=== PATIENT | female | born 1955 | race African-American/Black ===

== ENCOUNTER 2017-02-27 11:44 | Emergency (ER) | payer MEDICAID ==
[~2017-02-27] VITALS: Ht 167.6 cm; Wt 100.0 kg
[~2017-02-27 11:44] MED LIST: ACET-66 PO; AGGR20025 PO; BUDE10.2 IH; CARV6 PO; ESOM20CA31 PO; FURO40TA5 PO; GLYB5TAB8 PO; INSLAN SQ; LEVAHFA IH; LISI5TAB PO; MELO-273 PO; METF500T4 PO; MONT10TA21 PO; NABU750 PO; NIFE60TA85 PO; QUET200T PO; RISP2TAB22 PO; VICOT PO
[2017-02-27 11:59] LABS: BASOPHILS # (AUTO) 0.02 K/uL (0.00-0.20); BASOPHILS % (AUTO) 0.4 % (0.0-2.0); EOSINOPHILS # (AUTO) 0.03 K/uL (0.00-0.70); EOSINOPHILS % (AUTO) 0.57 % (1.0-6.0); HEMATOCRIT 36.9 % (36-46); HEMOGLOBIN 11.9 g/dL (12.0-16.0); LYMPHOCYTES # (AUTO) 2.4 K/uL (1.0-4.8); LYMPHOCYTES % (AUTO) 44.8 % (22.0-44.0); MEAN CORPUSCULAR HEMOGLOBIN 31.1 pg (26.0-34.0); MEAN CORPUSCULAR HGB CONC 32.2 G/dL (31.0-37.0); MEAN CORPUSCULAR VOLUME 96 fL (80-100); MONOCYTES # (AUTO) 0.5 K/uL (0.1-1.0); MONOCYTES % (AUTO) 8.6 % (2.0-9.0); NEUTROPHILS # (AUTO) 2.4 K/uL (1.8-7.7); NEUTROPHILS % (AUTO) 45.7 % (40.0-70.0); PLATELET COUNT (AUTO) 107 K/uL (150-450); RED BLOOD CELL COUNT(AUTO) 3.83 MIL/uL (4.00-5.20); RED CELL DISTRIBUTION WIDTH 15.1 % (11.5-14.5); WHITE BLOOD COUNT (AUTO) 5.3 K/uL (4.5-11.0)
[2017-02-27] MEDS ORDERED: HydrALAZINE HCL 20 MG/ML VIAL IVP ONE (12:00)
[2017-02-27 12:09] LABS: ANION GAP 14 mmol/L (8-16); CALCIUM, TOTAL 8.2 mg/dL (8.8-10.5); CARBON DIOXIDE 22 mmol/L (22-29); CHLORIDE 104 mmol/L (98-107); GLOMERULAR FILTR. RATE CALC 50 mL/min (>60); POTASSIUM 3.3 mmol/L (3.5-5.1); SODIUM SERUM 140 mmol/L (136-145); UREA NITROGEN, BLOOD 15 mg/dL (7-18)
[2017-02-27 12:11] LABS: INR 1.2 (0.9-1.1); PROTHROMBIN TIME 12.6 SEC (9.4-11.6)
[2017-02-27] MEDS ORDERED: ASPIRIN 81 MG CHEWABLE TABLET PO ONE (12:15)
[2017-02-27 12:34] LABS: ALANINE AMINOTRANSFERASE 129 U/L (12-78); ALBUMIN 2.5 g/dL (3.4-5.0); ASPARTATE AMINOTRANSFERASE 156 U/L (15-37); BILIRUBIN,TOTAL 0.3 mg/dL (0.1-1.0); CREATINE KINASE MB 0.8 ng/mL (0-5); CREATINE KINASE, TOTAL 142 U/L (26-192); TOTAL PROTEIN, SERUM 8.2 g/dL (6.4-8.2)
[2017-02-27 13:09] LABS: APPEARANCE,URINE CLEAR (CLEAR); GLUCOSE, URINE (UA) 500 mg/dL (NEGATIVE); KETONES,URINE NEGATIVE (NEGATIVE); LEUKOCYTE ESTERASE ,URINE NEGATIVE (NEGATIVE); OCCULT BLOOD,URINE TRACE (NEGATIVE); PH,URINE 6.5 (5.0-8.0); PROTEIN,URINE SEE CONFIRM (NEGATIVE)
[2017-02-27 13:12] LABS: ADD UA MICROSCOPIC YES
[2017-02-27 13:17] LABS: SULFOSALICYLIC ACID,URINE 1+ (Negative)
[2017-02-27 13:18] LABS: RBC,URINE 0-2 /HPF (0-2); SQUAMOUS EPITHELIAL CELL,UR Moderate /LPF (None Seen); WBC,URINE None Seen /HPF (0-5)
[2017-02-27] MEDS ORDERED: MetFORMIN HCL 500 MG TABLET PO ONE (13:45)
[2017-02-27] MEDS ORDERED: LISINOPRIL 10 MG TABLET PO ONE (13:45)
[2017-02-27] MEDS ORDERED: NIFEdipine 60 MG ER TABLET PO ONE (13:45)
[2017-02-27] MEDS ORDERED: HydrALAZINE HCL 10 MG TABLET PO ONE (15:45)
[2017-02-27] MEDS ORDERED: HydrALAZINE HCL 25 MG TABLET PO ONE (15:45)
[2017-02-27 16:05] VITALS: BP 186/81
== END 2017-02-27 16:39 | disposition home or self-care (01) ==
LOC: EMS 11:52
DX: G45.9 Transient cerebral ischemic attack, unspecified (principal); I10 Essential (primary) hypertension; E87.6 Hypokalemia; D64.9 Anemia, unspecified; I45.10 Unspecified right bundle-branch block; I11.0 Hypertensive heart disease with heart failure; I50.9 Heart failure, unspecified; E78.00 Pure hypercholesterolemia, unspecified; J44.9 Chronic obstructive pulmonary disease, unspecified; J45.909 Unspecified asthma, uncomplicated; F17.210 Nicotine dependence, cigarettes, uncomplicated; Z88.5 Allergy status to narcotic agent; Z71.6 Tobacco abuse counseling
CPT/HCPCS: 36415; 70450; 71010; 80053; 81001; 81002; 82550; 82553; 84484; 85025; 85610; 85730; 93005; 96365; 99285; 99406; J0360

== ENCOUNTER 2018-06-16 09:50 | Inpatient (IN) | payer MEDICAID ==
[~2018-06-16] VITALS: Ht 154.9 cm; Wt 63.4 kg
[~2018-06-16 09:50] MED LIST changes: +MELO-107 PO; -MELO-273 PO; +METF-444 PO; -METF500T4 PO
[2018-06-16 10:03] LABS: GLUCOSE,POINT OF CARE 96 MG/DL (70-110)
[2018-06-16] MEDS ORDERED: HydrALAZINE HCL 20 MG/ML VIAL IVP ONE ×2 (10:45→11:00)
[2018-06-16] MEDS ORDERED: CARVEDILOL 3.125 MG TABLET PO ONE (10:45)
[2018-06-16] MEDS ORDERED: LISINOPRIL 10 MG TABLET PO ONE (10:45)
[2018-06-16 12:30] LABS: BASOPHILS % (AUTO) 0.8 % (0.0-2.0); EOSINOPHILS % (AUTO) 0.6 % (1.0-6.0); HEMATOCRIT 37.8 % (36-46); HEMOGLOBIN 12.8 g/dL (12.0-16.0); LYMPHOCYTES # (AUTO) 1.5 K/uL (1.0-4.8); LYMPHOCYTES % (AUTO) 52.6 % (22.0-44.0); MEAN CORPUSCULAR HEMOGLOBIN 33.9 pg (26.0-34.0); MEAN CORPUSCULAR HGB CONC 33.8 G/dL (31.0-37.0); MEAN CORPUSCULAR VOLUME 100 fL (80-100); MONOCYTES # (AUTO) 0.3 K/uL (0.1-1.0); MONOCYTES % (AUTO) 12.1 % (2.0-9.0); NEUTROPHILS % (AUTO) 33.9 % (40.0-70.0); RED BLOOD CELL COUNT(AUTO) 3.78 MIL/uL (4.00-5.20); RED CELL DISTRIBUTION WIDTH 13.4 % (11.5-14.5)
[2018-06-16 12:42] LABS: ANION GAP 13 mmol/L (8-16); CALCIUM, TOTAL 9.1 mg/dL (8.8-10.5); CARBON DIOXIDE 28 mmol/L (22-29); CHLORIDE 100 mmol/L (98-107); CREATININE 1.11 mg/dL (0.60-1.30); GLOMERULAR FILTR. RATE CALC 60 mL/min (>60); GLUCOSE,RANDOM 94 mg/dL (70-110); POTASSIUM 3.2 mmol/L (3.5-5.1); SODIUM SERUM 141 mmol/L (136-145); UREA NITROGEN, BLOOD 27 mg/dL (7-18)
[2018-06-16 13:09] LABS: ALANINE AMINOTRANSFERASE 143 U/L (12-78); ALBUMIN 3.3 g/dL (3.4-5.0); ALKALINE PHOSPHATASE 77 U/L (46-116); ASPARTATE AMINOTRANSFERASE 237 U/L (15-37); BILIRUBIN,TOTAL 0.8 mg/dL (0.1-1.0); CREATINE KINASE MB 2.5 ng/mL (0-5); CREATINE KINASE, TOTAL 140 U/L (26-192)
[2018-06-16] MEDS ORDERED: AMLO-512 PO (13:11)
[2018-06-16] MEDS ORDERED: PROM6.2522 PO (13:11)
[2018-06-16] MEDS ORDERED: RISP2 PO (13:11)
[2018-06-16] MEDS ORDERED: OXCA300T PO (13:11)
[2018-06-16] MEDS ORDERED: QUET200T PO (13:11)
[2018-06-16] MEDS ORDERED: ALBU8.5H8 IH (13:11)
[2018-06-16] MEDS ORDERED: CLON.2 PO (13:11)
[2018-06-16] MEDS ORDERED: FAMO20 PO (13:11)
[2018-06-16] MEDS ORDERED: RIVA20TA PO (13:11)
[2018-06-16] MEDS ORDERED: ASPI-556 PO (13:11)
[2018-06-16 13:12] LABS: PLATELET COUNT (AUTO) 95 K/uL (150-450)
[2018-06-16] MEDS ORDERED: LISI-662 PO (13:14)
[2018-06-16 13:27] LABS: B-TYPE NATRIURETIC PEPTIDE 510 pg/mL (0-100)
[2018-06-16] MEDS ORDERED: MAGNESIUM HYDROXIDE SUSPENSION 30 ML UDCUP PO PRN (14:30)
[2018-06-16] MEDS ORDERED: ALBUTEROL SULFATE 2.5 MG/0.5 ML NEB SOLUTION NEB PRN (14:30)
[2018-06-16] MEDS ORDERED: 0.9% SODIUM CHLORIDE 10 ML SYRINGE IVP PRN (14:30)
[2018-06-16] MEDS ORDERED: ONDANSETRON HCL 4 MG/2 ML VIAL IVP PRN (14:30)
[2018-06-16] MEDS ORDERED: ACETAMINOPHEN 325 MG TABLET PO PRN ×2 (14:30)
[2018-06-16] MEDS ORDERED: POTASSIUM CHLORIDE 20 MEQ ER TABLET PO PRN (14:45)
[2018-06-16] MEDS ORDERED: POTASSIUM CHL 10 MEQ/WATER 50 ML IV PRN (14:45)
[2018-06-16] MEDS: ASPIRIN 81 MG CHEWABLE TABLET PO SCH (14:49)
[2018-06-16 14:54] LABS: GLUCOSE,POINT OF CARE 96 MG/DL (70-110)
[2018-06-16 14:57] LABS: APPEARANCE,URINE CLOUDY (CLEAR); BILIRUBIN,URINE NEGATIVE (NEGATIVE); GLUCOSE, URINE (UA) NEGATIVE (NEGATIVE); KETONES,URINE 15 mg/dL (NEGATIVE); LEUKOCYTE ESTERASE ,URINE NEGATIVE (NEGATIVE); NITRATE,URINE NEGATIVE (NEGATIVE); OCCULT BLOOD,URINE NEGATIVE (NEGATIVE); PROTEIN,URINE SEE CONFIRM (NEGATIVE); UROBILINOGEN,URINE 0.2 mg/dL (<=1.0)
[2018-06-16] MEDS ORDERED: CloNIDine HCL 0.1 MG TABLET PO PRN (15:00)
[2018-06-16 15:14] VITALS: BP 166/79
[2018-06-16 15:14] LABS: SULFOSALICYLIC ACID,URINE 3+ (Negative)
[2018-06-16 15:15] LABS: BACTERIA,URINE Few /HPF (None Seen); RBC,URINE 0-2 /HPF (0-2); SQUAMOUS EPITHELIAL CELL,UR Many /LPF (None Seen); WBC,URINE 0-2 /HPF (0-5)
[2018-06-16 15:33] LABS: AMPHET/METH SCREEN,URINE NEGATIVE (NEGATIVE); BARBITURATE SCREEN, URINE NEGATIVE (NEGATIVE); BENZODIAZEPINES SCREEN,URINE NEGATIVE (NEGATIVE); CANNABINOID SCREEN,URINE POSITIVE (NEGATIVE); COCAINE SCREEN,URINE NEGATIVE (NEGATIVE); METHADONE SCREEN, URINE NEGATIVE (NEGATIVE); OPIATE SCREEN,URINE NEGATIVE (NEGATIVE)
[2018-06-16 15:34] LABS: PHENCYCLIDINE SCREEN,URINE NEGATIVE (NEGATIVE)
[2018-06-16] MEDS ORDERED: GuaiFENesin/D-METHORPHAN [SUGAR-FREE] 200-20MG/10 ML SYRUP UDCUP PO PRN (15:45)
[2018-06-16] MEDS ORDERED: HydrOXYzine PAMOATE 50 MG CAPSULE PO PRN (15:45)
[2018-06-16] MEDS ORDERED: CYANOCOBALAMIN 1,000 MCG/ML VIAL IM ONE (15:45)
[2018-06-16] MEDS ORDERED: LOPERAMIDE HCL 2 MG CAPSULE PO PRN (15:45)
[2018-06-16] MEDS ORDERED: DIAZEPAM 5 MG TABLET PO PRN (15:45)
[2018-06-16] MEDS ORDERED: HEPARIN SODIUM,PORCINE 5,000 UNITS/ML VIAL SQ SCH (16:00)
[2018-06-16] MEDS: MULTIVITAMINS WITH MINERALS, THERAPEUTIC TABLET PO SCH (16:39)
[2018-06-16] MEDS: GABAPENTIN 300 MG CAPSULE PO SCH ×2 (16:39→20:31)
[2018-06-16 19:39] VITALS: BP 149/66
[2018-06-16] MEDS: CARVEDILOL 6.25 MG TABLET PO SCH (20:31)
[2018-06-16] MEDS: ATORVASTATIN CALCIUM 20 MG TABLET PO SCH (20:31)
[2018-06-16] MEDS: THIAMINE HCL 100 MG TABLET PO SCH (20:31)
[2018-06-16] MEDS: DOCUSATE SODIUM 100 MG CAPSULE PO SCH (20:31)
[2018-06-16] MEDS: HEPARIN SODIUM,PORCINE 5,000 UNITS/ML VIAL SQ SCH (20:32)
[2018-06-16] MEDS ORDERED: QUEtiapine FUMARATE 200 MG TABLET PO SCH (21:00)
[2018-06-16 23:55] VITALS: BP 108/58
[2018-06-17 04:09] VITALS: BP 117/60
[2018-06-17] MEDS ORDERED: DIAZEPAM 5 MG TABLET PO PRN ×2 (07:00→10:00)
[2018-06-17 07:49] VITALS: BP 127/92
[2018-06-17] MEDS: DIAZEPAM 5 MG TABLET PO SCH ×2 (09:00→09:30)
[2018-06-17] MEDS ORDERED: MULTIVITAMINS WITH MINERALS, THERAPEUTIC TABLET PO SCH (09:00)
[2018-06-17] MEDS: DOCUSATE SODIUM 100 MG CAPSULE PO SCH ×2 (09:00→20:36)
[2018-06-17] MEDS: ASPIRIN 81 MG CHEWABLE TABLET PO SCH (09:23)
[2018-06-17] MEDS: CARVEDILOL 6.25 MG TABLET PO SCH ×2 (09:23→20:35)
[2018-06-17] MEDS: GABAPENTIN 300 MG CAPSULE PO SCH ×4 (09:24→20:36)
[2018-06-17] MEDS: PANTOPRAZOLE SODIUM 40 MG DR TABLET PO SCH (09:24)
[2018-06-17] MEDS: FOLIC ACID 1 MG TABLET PO SCH (09:24)
[2018-06-17] MEDS: MULTIVITAMINS WITH MINERALS, THERAPEUTIC TABLET PO SCH (09:24)
[2018-06-17] MEDS: HEPARIN SODIUM,PORCINE 5,000 UNITS/ML VIAL SQ SCH (09:25)
[2018-06-17] MEDS: THIAMINE HCL 100 MG TABLET PO SCH ×2 (09:25→20:35)
[2018-06-17] MEDS: LISINOPRIL 20 MG TABLET PO SCH (09:25)
[2018-06-17] MEDS ORDERED: MAGNESIUM SULFATE 4 GM/WATER 100 ML IV PRN (10:00)
[2018-06-17] MEDS ORDERED: MAGNESIUM SULFATE 2 GM/WATER 50 ML IV PRN (10:00)
[2018-06-17 10:22] LABS: ALBUMIN 2.5 g/dL (3.4-5.0); MAGNESIUM 1.6 mg/dL (1.80-2.40)
[2018-06-17] MEDS: MAGNESIUM OXIDE 400 MG TABLET PO PRN ×3 (10:42→20:35)
[2018-06-17 11:59] VITALS: BP 105/57
[2018-06-17 14:00] LABS: INR 1.2 (0.9-1.1)
[2018-06-17] MEDS ORDERED: CARV12 PO (14:56)
[2018-06-17] MEDS ORDERED: *CLINICAL-WARFARIN SODIUM DOSING CLINICAL ONE (15:00)
[2018-06-17] MEDS ORDERED: WARFARIN SODIUM-INR 2.0-3.0-RX DOSING PER PROTOCOL PO PRN (15:30)
[2018-06-17 16:13] VITALS: BP 122/59
[2018-06-17] MEDS ORDERED: WARFARIN SODIUM 5 MG TABLET PO ONE (17:00)
[2018-06-17 19:37] VITALS: BP 123/56
[2018-06-17] MEDS: ATORVASTATIN CALCIUM 20 MG TABLET PO SCH (20:35)
[2018-06-17] MEDS ORDERED: QUEtiapine FUMARATE 100 MG TABLET PO SCH (21:00)
[2018-06-18 00:03] VITALS: BP 141/67
[2018-06-18 04:00] VITALS: BP 138/71
[2018-06-18 07:03] LABS: INR 1.1 (0.9-1.1); PROTHROMBIN TIME 11.7 SEC (9.4-11.6)
[2018-06-18 07:29] LABS: MAGNESIUM 1.7 mg/dL (1.80-2.40)
[2018-06-18 07:35] VITALS: BP 158/87
[2018-06-18 07:51] LABS: ALBUMIN 2.3 g/dL (3.4-5.0); BILIRUBIN,TOTAL 0.4 mg/dL (0.1-1.0); CALCIUM, TOTAL 9.5 mg/dL (8.8-10.5); CREATININE 1.39 mg/dL (0.60-1.30); POTASSIUM 3.9 mmol/L (3.5-5.1); TOTAL PROTEIN, SERUM 6.1 g/dL (6.4-8.2)
[2018-06-18] MEDS: ASPIRIN 81 MG CHEWABLE TABLET PO SCH (08:51)
[2018-06-18] MEDS: CARVEDILOL 6.25 MG TABLET PO SCH (08:51)
[2018-06-18] MEDS: DOCUSATE SODIUM 100 MG CAPSULE PO SCH (08:51)
[2018-06-18] MEDS: FOLIC ACID 1 MG TABLET PO SCH (08:51)
[2018-06-18] MEDS: LISINOPRIL 20 MG TABLET PO SCH (08:52)
[2018-06-18] MEDS: PANTOPRAZOLE SODIUM 40 MG DR TABLET PO SCH (08:52)
[2018-06-18] MEDS: GABAPENTIN 300 MG CAPSULE PO SCH ×3 (08:52→15:43)
[2018-06-18] MEDS: MAGNESIUM OXIDE 400 MG TABLET PO PRN ×3 (08:52→15:43)
[2018-06-18] MEDS: MULTIVITAMINS WITH MINERALS, THERAPEUTIC TABLET PO SCH (08:52)
[2018-06-18] MEDS: THIAMINE HCL 100 MG TABLET PO SCH (08:52)
[2018-06-18 11:40] VITALS: BP 156/81
[2018-06-18 16:06] VITALS: BP 156/81
[2018-06-18] MEDS ORDERED: WARFARIN SODIUM 7.5 MG TABLET PO ONE (17:00)
[2018-06-19] MEDS ORDERED: DIAZEPAM 5 MG TABLET PO PRN (07:00)
[2018-06-19] MEDS ORDERED: DIAZEPAM 5 MG TABLET PO SCH (09:00)
[2018-06-20] MEDS ORDERED: DIAZEPAM 5 MG TABLET PO PRN (07:00)
== END 2018-06-18 16:15 | disposition home or self-care (01) | DRG 194 ==
LOC: EMS 09:59 → 5S 14:39
PROVIDERS: ADMIT Internal Medicine; ATTEND Internal Medicine
DX: I11.0 Hypertensive heart disease with heart failure (principal); E43 Unspecified severe protein-calorie malnutrition; N17.9 Acute kidney failure, unspecified; D69.6 Thrombocytopenia, unspecified; I49.5 Sick sinus syndrome; F20.9 Schizophrenia, unspecified; D72.819 Decreased white blood cell count, unspecified; R74.0 Nonspecific elevation of levels of transaminase and lactic acid dehydrogenase [LDH]; E11.9 Type 2 diabetes mellitus without complications; F17.210 Nicotine dependence, cigarettes, uncomplicated; E78.5 Hyperlipidemia, unspecified; E87.6 Hypokalemia; B19.20 Unspecified viral hepatitis C without hepatic coma; E78.00 Pure hypercholesterolemia, unspecified; F12.90 Cannabis use, unspecified, uncomplicated; I25.10 Atherosclerotic heart disease of native coronary artery without angina pectoris; I50.22 Chronic systolic (congestive) heart failure; I25.2 Old myocardial infarction; F10.10 Alcohol abuse, uncomplicated; Y90.9 Presence of alcohol in blood, level not specified; J44.9 Chronic obstructive pulmonary disease, unspecified; Z91.19 Patient's noncompliance with other medical treatment and regimen; Z91.14 Patient's other noncompliance with medication regimen; Z79.82 Long term (current) use of aspirin; Z79.4 Long term (current) use of insulin; Z79.899 Other long term (current) drug therapy; Z88.5 Allergy status to narcotic agent; Z83.3 Family history of diabetes mellitus; Z82.49 Family history of ischemic heart disease and other diseases of the circulatory system; Z86.73 Personal history of transient ischemic attack (TIA), and cerebral infarction without residual deficits; Z68.21 Body mass index [BMI] 21.0-21.9, adult
CPT/HCPCS: 83735; 93005; 93306; 97116; 97162; 99285; J0360; J1644; J3420; J3480

== ENCOUNTER 2020-03-06 12:02 | Emergency (ER) | payer MEDICAID ==
[~2020-03-06] VITALS: Ht 160 cm; Wt 60.0 kg
[~2020-03-06 12:02] MED LIST changes: -ACET-66 PO; -AGGR20025 PO; +ALBU8.5H8 IH; +ASPI-556 PO; -BUDE10.2 IH; +CARV12 PO; -CARV6 PO; -ESOM20CA31 PO; +FAMO20 PO; -FURO40TA5 PO; -GLYB5TAB8 PO; -INSLAN SQ; -LEVAHFA IH; -LISI5TAB PO; -MELO-107 PO; -METF-444 PO; -MONT10TA21 PO; -NABU750 PO; -NIFE60TA85 PO; -RISP2TAB22 PO; -VICOT PO
[2020-03-06 14:01] LABS: BASOPHILS % (AUTO) 0.5 % (0.0-2.0); EOSINOPHILS % (AUTO) 0.5 % (1.0-6.0); HEMATOCRIT 38.4 % (36-46); HEMOGLOBIN 12.4 g/dL (12.0-16.0); LYMPHOCYTES # (AUTO) 1.7 K/uL (1.0-4.8); LYMPHOCYTES % (AUTO) 45.2 % (22.0-44.0); MEAN CORPUSCULAR HEMOGLOBIN 32.9 pg (26.0-34.0); MEAN CORPUSCULAR HGB CONC 32.4 G/dL (31.0-37.0); MEAN CORPUSCULAR VOLUME 102 fL (80-100); MONOCYTES # (AUTO) 0.3 K/uL (0.1-1.0); MONOCYTES % (AUTO) 7.1 % (2.0-9.0); NEUTROPHILS # (AUTO) 1.8 K/uL (1.8-7.7); NEUTROPHILS % (AUTO) 46.7 % (40.0-70.0); RED BLOOD CELL COUNT(AUTO) 3.78 MIL/uL (4.00-5.20); RED CELL DISTRIBUTION WIDTH 15.1 % (11.5-14.5)
[2020-03-06 14:13] LABS: CALCIUM, TOTAL 8.9 mg/dL (8.8-10.5); CREATININE 1.41 mg/dL (0.60-1.30); POTASSIUM 3.3 mmol/L (3.5-5.1)
[2020-03-06 14:24] LABS: PLATELET COUNT (AUTO) 48 K/uL (150-450)
[2020-03-06 14:39] LABS: ALBUMIN 4.2 g/dL (3.4-5.0); BILIRUBIN,TOTAL 0.8 mg/dL (0.1-1.0); TOTAL PROTEIN, SERUM 8.1 g/dL (6.4-8.2)
[2020-03-06 14:39] LABS: APPEARANCE,URINE CLEAR (CLEAR); BILIRUBIN,URINE NEGATIVE (NEGATIVE); GLUCOSE, URINE (UA) NEGATIVE (NEGATIVE); KETONES,URINE NEGATIVE (NEGATIVE); LEUKOCYTE ESTERASE ,URINE NEGATIVE (NEGATIVE); NITRATE,URINE NEGATIVE (NEGATIVE); OCCULT BLOOD,URINE TRACE (NEGATIVE); UROBILINOGEN,URINE 0.2 mg/dL (<=1.0)
[2020-03-06 14:45] LABS: BACTERIA,URINE None Seen /HPF (None Seen); PROTEIN,URINE NEGATIVE (NEGATIVE); RBC,URINE 0-2 /HPF (0-2); WBC,URINE None Seen /HPF (0-5)
[2020-03-06 15:33] VITALS: BP 163/78
[2020-03-06] MEDS ORDERED: POTASSIUM CHLORIDE 20 MEQ ER TABLET PO ONE (15:45)
== END 2020-03-06 15:47 | disposition home or self-care (01) ==
LOC: EMS 12:17
DX: S00.11XA Contusion of right eyelid and periocular area, initial encounter (principal); S00.12XA Contusion of left eyelid and periocular area, initial encounter; E87.6 Hypokalemia; R94.4 Abnormal results of kidney function studies; I11.0 Hypertensive heart disease with heart failure; I50.9 Heart failure, unspecified; J45.909 Unspecified asthma, uncomplicated; E78.00 Pure hypercholesterolemia, unspecified; F17.210 Nicotine dependence, cigarettes, uncomplicated; F20.9 Schizophrenia, unspecified; E11.9 Type 2 diabetes mellitus without complications; Z86.73 Personal history of transient ischemic attack (TIA), and cerebral infarction without residual deficits; Z88.5 Allergy status to narcotic agent; Z79.82 Long term (current) use of aspirin; W19.XXXA Unspecified fall, initial encounter; Y93.89 Activity, other specified; Y92.89 Other specified places as the place of occurrence of the external cause; Y99.8 Other external cause status
CPT/HCPCS: 70450; 93005